=== PATIENT | female | born 1945 | race Two or more races ===

== ENCOUNTER → 2017-04-19 19:32 | Emergency (ER) | payer MEDICARE, MEDICAID ==
--- NOTE | 2017-04-19 20:01 | UC ---
Back Pain HPI - HPI Summary HPI Summary: 72 YEAR OLD FEMALE PRESENTS WITH COMPLAINS OF RIGHT HIP PAIN AFTER FALLING. - History of Current Complaint Chief Complaint: UCBackPain Stated Complaint: LOWER BACK PAIN Time Seen by Provider: 04/19/17 19:57 Hx Obtained From: Patient, Family/Fly Frame Tender Onset/Duration: Sudden Onset Timing: Constant Severity Initially: Moderate Severity Currently: Moderate Pain Scale Used: 0-10 Numeric - 7 Character: Sharp Aggravating Factor(s): Movement, Lifting, Bending, Walking Alleviating Factor(s): Rest - Allergies/Home Medications Allergies/Adverse Reactions: Allergies Allergy/AdvReac Type Severity Reaction Status Date / Time Amoxicillin Allergy Unknown Verified 04/19/17 19:50 Reaction Details Aztreonam Allergy Unknown Verified 04/19/17 19:50 Reaction Details Ciprofloxacin [From Cipro] Allergy Unknown Verified 04/19/17 19:50 Reaction Details Prednisone Allergy Unknown Verified 04/19/17 19:50 Reaction Details Propoxyphene Allergy Unknown Verified 04/19/17 19:50 [From Darvocet-N] Reaction Details AVROTINE Allergy Unknown Uncoded 04/19/17 19:50 Reaction Details NOXZEMA Allergy Unknown Uncoded 04/19/17 19:50 Reaction Details PMH/Surg Hx/FS Hx/Imm Hx Previously Healthy: Yes - Surgical History Surgical History: Yes Surgery Procedure, Year, and Place: CHOLECYSTECTOMY - Family History Known Family History: Positive: Unknown - in custodial, pt is not good historian - Social History Alcohol Use: None Substance Use Type: None Smoking Status (MU): Never Smoked Tobacco Review of Systems Constitutional: Negative Skin: Negative Eyes: Negative ENT: Negative Respiratory: Negative Cardiovascular: Negative Gastrointestinal: Negative Genitourinary: Negative Motor: Negative Neurovascular: Negative Musculoskeletal: Other: - RIGHT HIP/BACK PAIN Neurological: Negative Psychological: Negative All Other Systems Reviewed And Are Negative: Yes Physical Exam Triage Information Reviewed: Yes Vital Signs: Initial Vital Signs Temp 37.0 C 04/19/17 19:41 Pulse Ox 99 04/19/17 19:41 Vital Signs Reviewed: Yes Eye Exam: Normal ENT Exam: Normal Dental Exam: Normal Neck exam: Normal Neck: Positive: 1 Respiratory Exam: Normal Cardiovascular Exam: Normal Abdominal Exam: Normal Musculoskeletal: Positive: Other: - RIGHT HIP/BACK PAIN RIGHT HIP CONTUSION Neurological Exam: Normal Psychological Exam: Normal Skin Exam: Normal Back Pain Course/Dx - Differential Dx/Diagnosis Provider Diagnoses: RIGHT HIP/BACK PAIN. RIGHT HIP CONTUSION. RIGHT HIP ABRASION Discharge - Discharge Plan Condition: Stable Disposition: HOME Prescriptions: Meloxicam [Mobic] 7.5 mg PO BID #30 tab Patient Education Materials: Low Back Strain (ED), Hip Contusion (ED) Referrals: Taj Hartley MD [Medical Doctor] - Vandana Howell NP [Primary Care Provider] -
--- NOTE | 2017-04-19 21:14 | RAD ---
INDICATION: Fall. Right leg pain COMPARISON: None TECHNIQUE: AP and lateral views were obtained. FINDINGS: The bony structures, joint spaces, and soft tissues are normal for age. IMPRESSION: NO ACUTE BONY FINDINGS.
--- NOTE | 2017-04-19 21:14 | RAD ---
INDICATION: Fall. Right hip injury COMPARISON: July 09, 2015 TECHNIQUE: An AP view of the pelvis and AP views of the hip in neutral and abducted position were obtained FINDINGS: Bones: There are no acute bony findings. There is underlying osteopenia Joint spaces: The hips articulate normally. The joint spaces are preserved. SI joints/symphysis: The SI joints and symphysis are intact. Other: None IMPRESSION: NO ACUTE PLAIN RADIOGRAPHIC FINDINGS.
== END | disposition home or self-care (01) ==
LOC: UCEAST 19:32
DX: M25.551 Pain in right hip (principal); M54.9 Dorsalgia, unspecified; S70.211A Abrasion, right hip, initial encounter; W19.XXXA Unspecified fall, initial encounter; Y93.9 Activity, unspecified; Y92.9 Unspecified place or not applicable; Y99.9 Unspecified external cause status
CPT/HCPCS: 99212; G0463

== ENCOUNTER 2017-07-26 13:54 | Emergency (ER) | payer MEDICARE, MEDICAID ==
[2017-07-26 14:06] VITALS: BP 135/97
--- NOTE | 2017-07-26 14:58 | UC ---
Respiratory Complaint HPI - HPI Summary HPI Summary: Patient choked on cereal at her residential care facility this morning---she was able to clear her airway with out intervention. - History of Current Complaint Chief Complaint: UCRespiratory Stated Complaint: SORE THROAT Time Seen by Provider: 07/26/17 14:53 Hx Obtained From: Patient, Family/Loom Operator Apprentice ?: No Onset/Duration: Sudden Onset, Lasting Minutes, Still Present Severity Initially: Mild Severity Currently: Mild Pain Intensity: 0 Aggravating Factors: Nothing Alleviating Factors: Nothing - Allergies/Home Medications Allergies/Adverse Reactions: Allergies Allergy/AdvReac Type Severity Reaction Status Date / Time acetaminophen Allergy Unknown Verified 07/26/17 14:14 [From Darvocet-N] Reaction Details amoxicillin Allergy Unknown Verified 07/26/17 14:14 Reaction Details aztreonam Allergy Unknown Verified 07/26/17 14:14 Reaction Details ciprofloxacin [From Cipro] Allergy Unknown Verified 07/26/17 14:14 Reaction Details prednisone Allergy Unknown Verified 07/26/17 14:14 Reaction Details propoxyphene Allergy Unknown Verified 07/26/17 14:14 [From Darvocet-N] Reaction Details AVROTINE Allergy Unknown Uncoded 04/19/17 19:50 Reaction Details NOXZEMA Allergy Unknown Uncoded 04/19/17 19:50 Reaction Details PMH/Surg Hx/FS Hx/Imm Hx Previously Healthy: No Endocrine History: Hypothyroidism GI/ History: Gastroesophageal Reflux Psychological History: Depression - Surgical History Surgical History: Yes Surgery Procedure, Year, and Place: CHOLECYSTECTOMY - Family History Known Family History: Positive: Unknown - in nursing home, pt is not good historian - Social History Occupation: Disabled Lives: Assisted Alcohol Use: None Substance Use Type: None Smoking Status (MU): Never Smoked Tobacco Review of Systems Constitutional: Negative Skin: Negative Eyes: Negative ENT: Negative Respiratory: Cough Cardiovascular: Negative Gastrointestinal: Negative Genitourinary: Negative Motor: Negative Neurovascular: Negative Musculoskeletal: Negative Neurological: Negative Psychological: Negative Is Patient Immunocompromised?: No All Other Systems Reviewed And Are Negative: Yes Physical Exam Triage Information Reviewed: Yes Appearance: Well-Appearing, No Pain Distress, Well-Nourished Vital Signs: Initial Vital Signs Temp 97.7 F 07/26/17 14:00 Pulse 88 07/26/17 14:00 Resp 18 03/24/18 14:00 BP 135/97 07/26/17 14:00 Pulse Ox 98 07/26/17 14:00 Vital Signs Reviewed: Yes Eye Exam: Other Eyes: Positive: Other: - left eye eechymosis-(not related to CC staff reports this bagrubén yesterday) ENT Exam: Normal ENT: Positive: Normal ENT inspection, Hearing grossly normal, TMs normal, Uvula midline. Negative: Nasal congestion, Tonsillar swelling, Tonsillar exudate, Trismus, Muffled voice, Hoarse voice, Dental tenderness, Sinus tenderness Dental Exam: Normal Neck exam: Normal Neck: Positive: Supple, Nontender, No Lymphadenopathy Respiratory Exam: Normal Respiratory: Positive: Chest non-tender, Lungs clear, Normal breath sounds, No respiratory distress, No accessory muscle use Cardiovascular Exam: Normal Cardiovascular: Positive: RRR, No Murmur, Pulses Normal, Brisk Capillary Refill Musculoskeletal Exam: Normal Musculoskeletal: Positive: Strength Intact, ROM Intact, No Edema Neurological Exam: Normal Neurological: Positive: Alert, Muscle Tone Normal Psychological Exam: Normal Skin Exam: Normal UC Diagnostic Evaluation - Laboratory O2 Sat by Pulse Oximetry: 98 - Radiology Xray Interpretation: Positive (See Comments) - Osteopenia, posterior pharyngeal Diverticulm, Cardiomegaly, Large Hiatal Hernia Radiology Interpretation Completed By: Radiologist Re-Evaluation - Re-Evaluation First Eval Change: Improved - cough has resolved, no further discomfort in throat Respiratory Course/Dx - Course Course Of Treatment: follow with pcp, observe for s/s of upper respiratory infection - Differential Dx/Diagnosis Provider Diagnoses: Choking resolved Discharge - Sign-Out/Discharge Documenting (check all that apply): Discharge - Discharge Plan Condition: Stable Disposition: HOME Patient Education Materials: Hiatal Hernia (ED) Referrals: Vandana Howell NP [Primary Care Provider] - 2 Days - Billing Disposition and Condition Condition: STABLE Disposition: HOME
--- NOTE | 2017-07-26 15:39 | RAD ---
HISTORY: Choking incident COMPARISONS: March 14, 2015 VIEWS: 3: Frontal and lateral views of the chest. FINDINGS: CARDIOMEDIASTINAL SILHOUETTE: The cardiac silhouette is enlarged. The cardiomediastinal silhouette is otherwise normal. GARCIA: The garcia are normal. PLEURA: The costophrenic angles are sharp. No pleural abnormalities are noted. LUNG PARENCHYMA: The lungs are clear. ABDOMEN: There is large hiatal hernia. BONES AND SOFT TISSUES: No bone or soft tissue abnormalities are noted. OTHER: None. IMPRESSION: CARDIOMEGALY. LARGE HIATAL HERNIA. NO ACTIVE CARDIOPULMONARY DISEASE.
--- NOTE | 2017-07-26 15:41 | RAD ---
HISTORY: Choking incident COMPARISONS: None relevant VIEWS: 2, frontal and lateral views of the soft tissues of the neck FINDINGS: There is continuous air column from the pharynx the trachea. There is thickening of the prevertebral soft tissue. There is diffuse osteopenia. Degenerative changes are noted of the cervical spine. Dystrophic calcification is noted along the level of the palate. The lung apices are clear. IMPRESSION: 1. OSTEOPENIA. 2. PREVERTEBRAL SOFT TISSUE THICKENING. IN THE ABSENCE OF A HISTORY OF TRAUMA, THIS MAY INDICATE THE PRESENCE OF A POSTERIOR PHARYNGEAL DIVERTICULUM
== END 2017-07-26 16:11 | disposition home or self-care (01) ==
LOC: UCEAST 13:54
DX: T17.928A Food in respiratory tract, part unspecified causing other injury, initial encounter (principal); Z88.3 Allergy status to other anti-infective agents; Z88.8 Allergy status to other drugs, medicaments and biological substances
CPT/HCPCS: 70360; 71046; 99202; G0463

== ENCOUNTER 2018-01-19 17:55 | Emergency (ER) | payer MEDICARE, MEDICAID ==
--- OUTSIDE RECORDS SUMMARY | 2018-01-19 19:01 | XMS REPORT ---
:1945 External Reference #:[id number] Author Organization [facility] Address [address] [place] [address] Phone [phone] Care Team Providers Name Role Phone Tereza COLOR CONTROL OPERATOR, Michela Care Team Information Dye Range Operator Unavailable Prisca COLOR CONTROL OPERATOR, Michela Primary Care Physician Unavailable Payers Type Date Identification Numbers Payment Provider Subscriber Medicare Primary Policy Number: [id number] [place] [employer] Luisa aHrkins SRVS PayID: [id number] [place] [address] Problems Description No Information Social History Type Date Description Comments Occupation Retired Cigarette Use Never Smoked Cigarettes Cigars Never Smoked Cigars Pipe Never Smoked A Pipe Smokeless Tobacco Never Used Smokeless Tobacco ETOH Use Denies alcohol use Smoking Patient has never smoked Allergies, Adverse Reactions, Alerts Date Description Reaction Status Severity Comments 12/23/2017 Amoxicillin active 12/23/2017 Noxzema Clean active 12/23/2017 Propoxyphene active 12/23/2017 Cipro active 12/23/2017 Aztreonam active 12/23/2017 Avro Luanne active 12/23/2017 Anectine active 12/23/2017 Gelato Anesthetic active 12/23/2017 Prednisone active Medications Medication Date Status Form Strength Qnty SIG Indications Ordering Provider Prilosec CR Active 20mg 1 po qd Shortle /0000 Michela PALACIO Aspirin Active Chewtabs 81mg 1 by mouth Unknown /0000 every day Fluvoxamine Active Tablets 50mg as directed Unknown Maleate /0000 Levothyroxine Active Tablets 25mcg 1 by mouth Unknown Sodium /0000 every day Vitamin D3 Active Capsules 1000Unit 1 by mouth Unknown /0000 every day Calcium Active Capsules 600-200mg as directed Unknown Carbonate-Vitam /0000 -Unit in D Budesonide Hx Suspension 0.25mg/2M add 2 Unknown /0000 L respule to 5 - milliliters 12/23 of bactroban /2017 (1/3 tube in 1 liter ns and 3 drops) of joey's baby shampoo, rinse nose bid. Vital Signs Date Vital Result Comment 12/23/2017 Weight 119.00 lb Weight in kg's 53.978 Height 58.50 inches 4'10.50" Height in cm's 148.6 cm BMI (Body Mass Index) 24.4 kg/m2 Results Description No Information Procedures Description No Information Encounters Type Date Location Provider CPT E/M Dx Office Visit 12/23/2017 2:15p [place] 05/05/07 [place] A[place], [id number] K22.5 [place] Plan of Care 12/23/2017 - Salazar Avelar M.D.K22.5 Diverticulum of esophagus, acquiredComments:The patient has a known Zenker's diverticulum. She has been living at her current residence for about 1.5 years. She has been eating well with no problems until a recent choking episode on min shredded wheat. She is not eating that any more and has had no further incidents of choking. She is maintaining her weight. At this point with just the one episode, I think the risk of surgery outweigh the benefit. The surgery I could offer is endoscopic stapling of the diverticulum. If she has repeated episodes or progressive difficulty, that is when surgery would be indicated.
--- NOTE | 2018-01-19 20:28 | ED ---
Adult Trauma - HPI Summary HPI Summary: 72-year-old female presents with fall to the right side. She bent her right arm behind her. She'll plan on right hip. No head injury or loss conscious. She was complaining of right hip pain and right arm pain but she denies any pain now. She is at her normal baseline. She denies any chest pain or shortness of breath. Fall was mechanical fall as she tripped over an object. She has not taken her nightly blood pressure medications. She denies any other complaint. - History of Current Complaint Chief Complaint: EDExtremityUpper Stated Complaint: FELL RIGHT/HIP PAIN Time Seen by Provider: 01/19/18 19:01 Pain Intensity: 0 - Allergy/Home Medications Allergies/Adverse Reactions: Allergies Allergy/AdvReac Type Severity Reaction Status Date / Time acetaminophen Allergy Unknown Verified 01/19/18 18:02 [From Darvocet-N] Reaction Details amoxicillin Allergy Unknown Verified 01/19/18 18:02 Reaction Details aztreonam Allergy Unknown Verified 01/19/18 18:02 Reaction Details ciprofloxacin [From Cipro] Allergy Unknown Verified 01/19/18 18:02 Reaction Details prednisone Allergy Unknown Verified 01/19/18 18:02 Reaction Details propoxyphene Allergy Unknown Verified 01/19/18 18:02 [From Darvocet-N] Reaction Details AVROTINE Allergy Unknown Uncoded 01/19/18 18:02 Reaction Details NOXZEMA Allergy Unknown Uncoded 01/19/18 18:02 Reaction Details PMH/Surg Hx/FS Hx/Imm Hx Endocrine/Hematology History: Reports: Hx Thyroid Disease Denies: Hx Diabetes Cardiovascular History: Reports: Hx Hypertension Denies: Hx Congestive Heart Failure Respiratory History: Denies: Other Respiratory Problems/Disorders Musculoskeletal History: Reports: Hx Osteoporosis - Cancer History Hx Chemotherapy: No Hx Radiation Therapy: No - Surgical History Surgery Procedure, Year, and Place: CHOLECYSTECTOMY Infectious Disease History: No Infectious Disease History: Denies: Traveled Outside the [place] in Last 30 Days - Family History Known Family History: Positive: Unknown - in [facility], pt is not good historian - Social History Alcohol Use: None Substance Use Type: Reports: None Smoking Status (MU): Never Smoked Tobacco Review of Systems Negative: Fever Negative: Chest Pain Negative: Shortness Of Breath Positive: Myalgia - fall landed on right arm and hip All Other Systems Reviewed And Are Negative: Yes Physical Exam Triage Information Reviewed: Yes Vital Signs On Initial Exam: Initial Vitals Temp Pulse Resp BP Pulse Ox 98.0 F 77 15 183/54 96 01/19/18 17:59 01/19/18 17:59 01/19/18 17:59 01/19/18 17:59 01/19/18 17:59 Vital Signs Reviewed: Yes Appearance: Positive: Well-Appearing Skin: Positive: Warm, Dry Head/Face: Positive: Normal Head/Face Inspection Eyes: Positive: Normal, Conjunctiva Clear ENT: Positive: Pharynx normal Respiratory/Lung Sounds: Positive: Clear to Auscultation, Breath Sounds Present Cardiovascular: Positive: Normal, RRR Abdomen Description: Positive: Nontender, Soft Bowel Sounds: Positive: Present Musculoskeletal: Positive: Strength/ROM Intact - right hip and arm, Other - nontender right hip and arm, good pulses, capillary refill<2 secs Neurological: Positive: Normal Psychiatric: Positive: Normal Diagnostics - Vital Signs Vital Signs Temp Pulse Resp BP Pulse Ox 01/19/18 17:59 98.0 F 77 15 183/54 96 - Laboratory Lab Statement: Any lab studies that have been ordered have been reviewed, and results considered in the medical decision making process. - Radiology hip Xray Interpretation: No Acute Changes Radiology Interpretation Completed By: ED Physician arm Xray Interpretation: No Acute Changes Radiology Interpretation Completed By: ED Physician Adult Trauma Course/Dx - Course Course Of Treatment: 72-year-old female presents with fall to the right side. She bent her right arm behind her. She'll plan on right hip. No head injury or loss conscious. She was complaining of right hip pain and right arm pain but she denies any pain now. She is at her normal baseline. She denies any chest pain or shortness of breath. Fall was mechanical fall as she tripped over an object. She has not taken her nightly blood pressure medications. She denies any other complaint. On exam no bruising noted. Nontender right arm and hip. X-rays read by me as normal. Gave a dose of hydrochlorothiazide as blood pressure elevate at the moment told to take night bp medications. Patient and caregiver understands and agrees with plan. - Diagnoses Differential Diagnosis/HQI/PQRI: Positive: Abrasion(s), Contusion(s), Fracture Provider Diagnoses: Fall, Injury of right upper arm, Right hip pain, Hypertension Discharge - Sign-Out/Discharge Documenting (check all that apply): Patient Departure - Discharge Plan Condition: Good Disposition: HOME Patient Education Materials: R.I.C.E. Treatment (ED) Referrals: Vandana Howell NP [Primary Care Provider] - Additional Instructions: you were given a dose of hydrochlorothiazide today as blood pressure was elevated, take normal night meds, you will have to urinate more tonight Take Tylenol every 6 hours as needed for pain Apply ice, rest, elevate Follow up with primary care physician within 7 days about fall and blood pressure Return to ED if unable to ambulate or if develop any new or worsening symptoms - Billing Disposition and Condition Condition: GOOD Disposition: Home
[2018-01-19] MEDS ORDERED: Hydrochlorothiazide TAB* 25 MG PO ONE (21:11)
[2018-01-19 21:30] VITALS: BP 205/90
--- NOTE | 2018-01-20 07:53 | RAD ---
Indication: Right forearm injury. 2 views of the right forearm are reviewed. There is ulnar positive variance noted. Degenerative changes of the radiocarpal joint is noted. No definite fracture is identified. IMPRESSION: Degenerative changes of the radiocarpal joint. No fracture of the right forearm is noted. R0
--- NOTE | 2018-01-20 07:55 | RAD ---
Indication: Right hip pain after fall. 2 views of the right hip and an AP view of the pelvis demonstrates no fracture. Joint spaces well-preserved. Pelvic ring is intact. There is a radiopaque foreign body overlying the right femoral head. IMPRESSION: Radiopaque foreign body overlying the right femoral head without fracture. R0
--- NOTE | 2018-01-20 07:56 | RAD ---
Indication: Right arm injury. 2 views of the right upper arm demonstrates no fracture. AC joint arthritis is noted. No other bone or joint abnormality is identified. IMPRESSION: No fracture of the right humerus is noted. R0
--- NOTE | 2018-01-21 14:22 | PN ---
Progress Note - Progress Note Date of Service: 01/19/18 Note: Pt. seen in ER after a fall 01/19/18 for arm and hip pain. Final xray read "radiopaque foreign body overlying right femoral head without fx." Bases on chart PE there were no breaks in the skin.
== END 2018-01-19 21:28 | disposition home or self-care (01) ==
LOC: ED 17:55
DX: S49.91XA Unspecified injury of right shoulder and upper arm, initial encounter (principal); I10 Essential (primary) hypertension; M25.551 Pain in right hip; W19.XXXA Unspecified fall, initial encounter; Y92.9 Unspecified place or not applicable
CPT/HCPCS: 99282; A9270-GY

== ENCOUNTER 2018-12-11 20:34 | Emergency (ER) | payer MEDICARE, MEDICAID ==
[2018-12-12] MEDS ORDERED: NS 0.9% 1000 ML** 1,000 ML IV ONE (00:24)
--- NOTE | 2018-12-12 01:11 | ED ---
Complex/Multi-Sys Presentation - HPI Summary HPI Summary: 73-year-old female presents with dehydration today. She was sent by the home she stays at. caregiver states has not been eating or drinking much. She is very depressed she tends to do this. States she was jokingly told that her friend had . since then she does not have an appetite. She denies any bowel pain. No chest pain shortness breath. No fevers. She was finally able to eat today. was sent in for IV fluids. This is information given by her caregiver. Patient is level V Due to baseline mental status. Patient is currently at her baseline mental status. - History Of Current Complaint Chief Complaint: EDGeneral Time Seen by Provider: 12/12/18 00:18 - Allergies/Home Medications Allergies/Adverse Reactions: Allergies Allergy/AdvReac Type Severity Reaction Status Date / Time acetaminophen Allergy Unknown Verified 12/11/18 20:40 [From Darvocet-N] Reaction Details amoxicillin Allergy Unknown Verified 12/11/18 20:40 Reaction Details aztreonam Allergy Unknown Verified 12/11/18 20:40 Reaction Details ciprofloxacin [From Cipro] Allergy Unknown Verified 12/11/18 20:40 Reaction Details prednisone Allergy Unknown Verified 12/11/18 20:40 Reaction Details propoxyphene Allergy Unknown Verified 12/11/18 20:40 [From Darvocet-N] Reaction Details AVROTINE Allergy Unknown Uncoded 01/19/18 18:02 Reaction Details NOXZEMA Allergy Unknown Uncoded 01/19/18 18:02 Reaction Details Home Medications: Home Medications Ibuprofen TAB* [Advil TAB*] 400 mg PO Q4HR 12/11/18 [History Confirmed 12/11/18] Tramadol HCl 50 mg PO Q6HR PRN 12/11/18 [History Confirmed 12/11/18] PMH/Surg Hx/FS Hx/Imm Hx Endocrine/Hematology History: Reports: Hx Thyroid Disease Denies: Hx Diabetes Cardiovascular History: Reports: Hx Hypertension Denies: Hx Congestive Heart Failure Respiratory History: Denies: Other Respiratory Problems/Disorders Musculoskeletal History: Reports: Hx Osteoporosis - Cancer History Hx Chemotherapy: No Hx Radiation Therapy: No - Surgical History Surgery Procedure, Year, and Place: CHOLECYSTECTOMY Infectious Disease History: No Infectious Disease History: Denies: Traveled Outside the [place] in Last 30 Days - Family History Known Family History: Positive: Unknown - in nursing home, pt is not good historian - Social History Alcohol Use: None Substance Use Type: Reports: None Smoking Status (MU): Never Smoked Tobacco Review of Systems Negative: Fever Negative: Chest Pain Negative: Shortness Of Breath Negative: Abdominal Pain, Nausea All Other Systems Reviewed And Are Negative: Yes Physical Exam Triage Information Reviewed: Yes Vital Signs On Initial Exam: Initial Vitals Temp Pulse Resp BP Pulse Ox 97.9 F 99 20 130/58 92 12/11/18 20:36 12/11/18 20:36 12/11/18 20:36 12/11/18 20:36 12/11/18 20:36 Vital Signs Reviewed: Yes Appearance: Positive: Well-Appearing Skin: Positive: Warm, Dry Head/Face: Positive: Normal Head/Face Inspection Eyes: Positive: Normal, EOMI, MARITZA, Conjunctiva Clear ENT: Positive: Normal ENT inspection, Pharynx normal, TMs normal Respiratory/Lung Sounds: Positive: Clear to Auscultation, Breath Sounds Present Cardiovascular: Positive: Normal, RRR Abdomen Description: Positive: Nontender, Soft Bowel Sounds: Positive: Present Musculoskeletal: Positive: Normal Neurological: Positive: Normal Psychiatric: Positive: Normal Diagnostics - Vital Signs Vital Signs Temp Pulse Resp BP Pulse Ox 12/11/18 23:00 98 F 97 18 0/0 94 12/11/18 20:36 97.9 F 99 20 130/58 92 - Laboratory Result Diagrams: 12/12/18 01:30 12/12/18 01:30 Lab Statement: Any lab studies that have been ordered have been reviewed, and results considered in the medical decision making process. Re-Evaluation - Re-Evaluation First Eval Re-Evaluation Time: 01:57 Comment: patient staes that she feels great Complex Multi-Symp Course/Dx Course Of Treatment: 73-year-old female presents with dehydration today. She was sent by the home she stays at. caregiver states has not been eating or drinking much. She is very depressed she tends to do this. States she was jokingly told that her friend had . since then she does not have an appetite. She denies any bowel pain. No chest pain shortness breath. No fevers. She was finally able to eat today. was sent in for IV fluids. This is information given by her caregiver. Patient is level V Due to baseline mental status. Patient is currently at her baseline mental status. On exam lungs clear to auscultation. Nontender abdomen. Given IV fluids and feeling better. wbc normal. sodium 133. gave liter of fluid to correct that. bun and cr are were it has been before. urine shows uti. will place on macrobid. patient caregiver understand and agrees with plan. - Diagnoses Differential Diagnoses/HQI/PQRI: Urinary Tract Infection, Other - gastroenteritis, dehyrdation Provider Diagnoses: Dehydration, UTI (urinary tract infection) Discharge - Sign-Out/Discharge Documenting (check all that apply): Patient Departure Patient Received Moderate/Deep Sedation with Procedure: No - Discharge Plan Condition: Good Disposition: HOME Prescriptions: Nitrofurantoin Monohyd/M-Cryst [Macrobid 100 mg Capsule] 100 mg PO BID #10 cap Patient Education Materials: Dehydration (ED), Urinary Tract Infection in Women (ED) Referrals: Karishma Helms NP [Primary Care Provider] - Additional Instructions: encourage fluids and food as tolerated take macrobid twice a day for 5 days Follow up with primary Return to ED if develop any new or worsening symptoms - Billing Disposition and Condition Condition: GOOD Disposition: Home
[2018-12-12 01:45] LABS: ABS Eosinophils 0.1 10^3/ul (0-0.6); ABS Lymphocytes 0.5 10^3/ul (1.0-4.8); ABS Monocytes 1.4 10^3/ul (0-0.8); ABS Neutrophils 8.4 10^3/ul (1.5-7.7); Eosinophil % 0.7 %; Hematocrit 39 % (35-47); Hemoglobin 12.5 g/dL (12.0-16.0); Mean Corpuscular HGB Conc 32 g/dL (31-36); Mean Corpuscular Hemoglobin 31 pg (27-31); Mean Corpuscular Volume 97 fL (80-97); Nucleated Red Blood Cells % 0.1; Platelet Count 133 10^3/uL (150-450); Red Blood Count 3.98 10^6 /uL (3.70-4.87); Red Cell Distribution Width 15 % (10-15); White Blood Count 10.4 10^3/uL (3.5-10.8)
[2018-12-12 01:57] LABS: Albumin 3.2 g/dL (3.2-5.2); Calcium 8.9 mg/dL (8.6-10.3); Magnesium 1.9 mg/dL (1.9-2.7); Potassium 4.4 mmol/L (3.5-5.0); Total Bilirubin 0.4 mg/dL (0.2-1.0)
[2018-12-12 02:03] LABS: Albumin/Globulin Ratio 1.1 (1-3); EGFR African American 56.3 (>60); EGFR Non-African American 46.5 (>60); Total Protein 6.2 g/dL (6.4-8.9)
[2018-12-12 02:06] LABS: Urine Appearance Cloudy; Urine Bacteria 2+ (Absent); Urine Bilirubin Negative (Negative); Urine Blood 1+ (Negative); Urine Color Yellow; Urine Glucose Negative (Negative); Urine Ketones Negative (Negative); Urine Nitrite Positive (Negative); Urine Protein 1+(30 mg/dL) (Negative); Urine Red Blood Cell 1+(3-5/hpf) (Absent); Urine Specific Gravity 1.019 (1.010-1.030); Urine Squamous Epithelial Cell Present (Absent); Urine Urobilinogen Negative (Negative); Urine White Blood Cell 3+(>20/hpf) (Absent)
[2018-12-12] MEDS ORDERED: Nitrofurantoin Macrocrystals* 100 MG CAP PO ONE (02:07)
[2018-12-12 02:42] VITALS: BP 114/81
--- NOTE | 2018-12-14 06:03 | PN ---
Progress Note - Progress Note Date of Service: 12/12/18 Note: Patient presented with dehydration due to ED. Urine culture preliminary clinical 100,000 Patient was placed on Macrobid prior to discharge We will await sensitivities at this time.
--- NOTE | 2018-12-15 05:59 | PN ---
Progress Note - Progress Note Date of Service: 12/15/18 Note: Patient's urine culture grew Escherichia coli greater than 100,000. patient placed on Macrobid which is sensitivity too. No further action required.
== END 2018-12-12 02:42 | disposition home or self-care (01) ==
LOC: ED 20:34
DX: E86.0 Dehydration (principal); N39.0 Urinary tract infection, site not specified; E07.9 Disorder of thyroid, unspecified; I10 Essential (primary) hypertension; Z79.899 Other long term (current) drug therapy; Z88.6 Allergy status to analgesic agent; Z88.3 Allergy status to other anti-infective agents; Z88.0 Allergy status to penicillin; Z88.8 Allergy status to other drugs, medicaments and biological substances
CPT/HCPCS: 36415; 80053; 81003; 81015; 83605; 83735; 85025; 87077; 87086; 87186; 96360; 96361; 99283; A9270-GY

== ENCOUNTER 2019-01-25 16:37 | Emergency (ER) | payer MEDICARE, MEDICAID ==
--- NOTE | 2019-01-25 17:12 | ED ---
Head Injury - HPI Summary HPI Summary: This pt is a 73 y[facility] [place] today after she fell coming out of the shower. jewel staker reports pt lives in a detention and is independent. Per healthcare management, pt was taking a shower at around 15:20 today when she fell and struck her head and hit her right arm. jewel staker notes they heard the pt yell help and pt was on the floor. jewel staker denies LOC. Per healthcare management, pt was weak and had poor balance after fall. Pt denies neck pain, nausea , vomiting, dizziness. Per ED nurse, pt has a bruise on right shoulder. Per healthcare management, pt takes aspirin but denies any other anticoagulants. - History Of Current Complaint Chief Complaint: EDHeadInjury Stated Complaint: HEAD INJURY PER PT Time Seen by Provider: 01/25/19 17:02 Hx Obtained From: Patient, Family/Heel Sprayer - Heel Sprayer Mechanism Of Injury: Blunt Trauma, Fall From A Standing Position Onset/Duration: Started Hours Ago, Traumatic, Still Present Onset of Pain: Immediate Severity Initially: Mild Pain Intensity: 2 Pain Scale Used: 0-10 Numeric Aggravating Factor(s): Other: - nothing Alleviating Factor(s): Other: - nothing Associated Signs And Symptoms: Neck Pain, Other: - POSITIVE: poor balance, weakness. NEGATIVE: LOC, nausea, vomiting, dizziness - Allergies/Home Medications Allergies/Adverse Reactions: Allergies Allergy/AdvReac Type Severity Reaction Status Date / Time acetaminophen Allergy Unknown Verified 01/25/19 16:49 [From Darvocet-N] Reaction Details amoxicillin Allergy Unknown Verified 01/25/19 16:49 Reaction Details aztreonam Allergy Unknown Verified 01/25/19 16:49 Reaction Details ciprofloxacin [From Cipro] Allergy Unknown Verified 01/25/19 16:49 Reaction Details prednisone Allergy Unknown Verified 01/25/19 16:49 Reaction Details propoxyphene Allergy Unknown Verified 01/25/19 16:49 [From Darvocet-N] Reaction Details AVROTINE Allergy Unknown Uncoded 01/19/18 18:02 Reaction Details NOXZEMA Allergy Unknown Uncoded 01/19/18 18:02 Reaction Details PMH/Surg Hx/FS Hx/Imm Hx Endocrine/Hematology History: Reports: Hx Thyroid Disease Denies: Hx Diabetes Cardiovascular History: Reports: Hx Hypertension Denies: Hx Congestive Heart Failure Respiratory History: Denies: Other Respiratory Problems/Disorders GI History: Reports: Hx Gastroesophageal Reflux Disease Musculoskeletal History: Reports: Hx Osteoporosis Neurological History: Reports: Hx Developmental Delay - Cancer History Hx Chemotherapy: No Hx Radiation Therapy: No - Surgical History Surgical History: Yes Surgery Procedure, Year, and Place: CHOLECYSTECTOMY Infectious Disease History: No Infectious Disease History: Denies: Traveled Outside the [place] in Last 30 Days - Family History Known Family History: Positive: Unknown - in detention, pt is not good historian - Social History Alcohol Use: None Substance Use Type: Reports: None Smoking Status (MU): Never Smoked Tobacco Review of Systems Negative: Fever, Chills ENT: Negative Cardiovascular: Negative Respiratory: Negative Negative: Vomiting, Nausea Negative: Other - NEGATIVE: neck pain Neurological: Other - POSITIVE: poor balance. NEGATIVE: LOC, dizziness Positive: Weakness All Other Systems Reviewed And Are Negative: Yes Physical Exam - Summary Physical Exam Summary: VITAL SIGNS: Reviewed. GENERAL: Patient is a well-developed and nourished female. Patient is not in any acute respiratory distress. HEAD AND FACE: Bump on the occipital area, no abrasions, no lacerations. EYES: PERRLA, EOMI x 2, No injected conjunctiva, no nystagmus. EARS: Hearing grossly intact. Ear canals and tympanic membranes are within normal limits. MOUTH: Oropharynx within normal limits. NECK: Supple, trachea is midline, no adenopathy, no JVD, no carotid bruit, no c- spine tenderness, neck with full ROM. CHEST: Symmetric, no tenderness at palpation LUNGS: Clear to auscultation bilaterally. No wheezing or crackles. CVS: Regular rate and rhythm, S1 and S2 present, no murmurs or gallops appreciated. ABDOMEN: Soft, non-tender. No signs of distention. No rebound no guarding, and no masses palpated. Bowel sounds are normal. EXTREMITIES: FROM in all major joints, no edema, no cyanosis or clubbing. NEURO: Alert and oriented x 3. No acute neurological deficits. Speech is normal and follows commands. SKIN: Dry and warm Triage Information Reviewed: Yes Vital Signs On Initial Exam: Initial Vitals Temp Pulse Resp BP Pulse Ox 98.7 F 86 18 142/72 96 01/25/19 16:44 01/25/19 16:44 01/25/19 16:44 01/25/19 16:44 01/25/19 16:44 Vital Signs Reviewed: Yes Diagnostics - Vital Signs Vital Signs Temp Pulse Resp BP Pulse Ox 01/25/19 16:44 98.7 F 86 18 142/72 96 - Laboratory Lab Statement: Any lab studies that have been ordered have been reviewed, and results considered in the medical decision making process. - CT Brain CT CT Interpretation Completed By: Radiologist Summary of CT Findings: IMPRESSION: 1. There is age-related diffuse cerebral and cerebellar volume loss and chronic microvascular ischemic disease. 2. There is right parieto-occipital scalp contusion. 3. No acute intracranial pathology. Dr. Cowart has reviewed this report. Head Injury Course/Dx Assessment/Plan: Head CT impression: 1. There is age-related diffuse cerebral and cerebellar volume loss and chronic microvascular ischemic disease. 2. There is right parieto-occipital scalp contusion. 3. No acute intracranial pathology. Patient is hemodynamically stable, alert and oriented 3. Therefore the patient will be discharged home with follow-up from her primary care physician. Patient is hemodynamically stable, alert and oriented 3. - Diagnoses Provider Diagnoses: Head contusion Discharge ED - Sign-Out/Discharge Documenting (check all that apply): Patient Departure - Discharge home Patient Received Moderate/Deep Sedation with Procedure: No - Discharge Plan Condition: Stable Disposition: HOME Patient Education Materials: Contusion in Adults (ED) Referrals: Karishma Helms NP [Primary Care Provider] - Additional Instructions: Please follow up with your primary care provider in 2-3 days. RETURN TO THE EMERGENCY DEPARTMENT FOR ANY WORSENING OR NEW SYMPTOMS. - Billing Disposition and Condition Condition: STABLE Disposition: Home - Attestation Statements Document Initiated by Emilia: Yes Documenting Scribe: Caroline Dubon Provider For Whom Emilia is Documenting (Include Credential): Artem Cowart MD Scribe Attestation: Caroline Conway scribed for Artem Cowart MD on 01/25/19 at 1557. Scribe Documentation Reviewed: Yes Provider Attestation: The documentation as recorded by the Caroline campbell accurately reflects the service I personally performed and the decisions made by me, Artem Cowart MD Status of Scribe Document: Viewed
[2019-01-25 20:15] VITALS: BP 180/88
== END 2019-01-25 20:14 | disposition home or self-care (01) ==
LOC: ED 16:37
DX: S00.93XA Contusion of unspecified part of head, initial encounter (principal); W18.2XXA Fall in (into) shower or empty bathtub, initial encounter; Y93.E1 Activity, personal bathing and showering; Y92.091 Bathroom in other non-institutional residence as the place of occurrence of the external cause; Z88.6 Allergy status to analgesic agent; Z88.1 Allergy status to other antibiotic agents; Z88.8 Allergy status to other drugs, medicaments and biological substances; E07.9 Disorder of thyroid, unspecified; I10 Essential (primary) hypertension; K21.9 Gastro-esophageal reflux disease without esophagitis; Z90.49 Acquired absence of other specified parts of digestive tract; Z79.899 Other long term (current) drug therapy
CPT/HCPCS: 70450; 99282